=== PATIENT | female | born 1995 | race Two or more races ===

== ENCOUNTER 2022-07-22 10:53 | Outpatient (REF) | payer OTHER, SELFPAY ==
--- NOTE | ~2022-07-22 | MR_ITS ---
EXAMINATION: MR BRAIN WITHOUT AND WITH CONTRAST CLINICAL INFORMATION: Seizures. COMPARISON: None. TECHNIQUE: Multiplanar, multisequence imaging of the brain was acquired on a 1.5 Bertha magnet before and after the intravenous administration of 8.5 mL of Gadavist. FINDINGS: No diffusion abnormalities are identified to suggest an acute infarct. The ventricles are normal in size. No mass effect or midline shift is seen. No brain parenchymal signal abnormality is noted. No extra-axial fluid collections are seen. The brainstem and cerebellum are normal. There is no abnormal parenchymal or leptomeningeal enhancement. No focal cortical dysplasia or migrational abnormality is seen. The hippocampi are normal in appearance. The gradient refocused acquisition demonstrates no pathologic magnetic susceptibility artifact to indicate underlying acute or chronic blood products. There is a small incidental 6 mm retrosplenial cyst in the midline. The craniovertebral junction, marrow signal, and remaining midline structures are normal. The orbits and pituitary axis appear normal. The major intracranial flow voids at the level of the [place] are preserved. The dural venous sinus flow voids are maintained. The mastoid air cells are well aerated. Moderate ethmoid sinus mucosal disease noted, more so anteriorly with mild mucosal thickening in the frontal sinus cavities. There is mild left maxillary sinus mucosal thickening as well. There are multiple submucosal retention cysts in the nasopharyngeal roof. Of note, the lateral retropharyngeal lymph nodes are mildly enlarged bilaterally, measuring up to 1.2 cm in size. MR/MR head/brain wo/w con IMPRESSION: No acute intracranial process. Relatively normal MRI of the brain. No epileptogenic focus visible. No hippocampal pathology. Moderate ethmoid sinus mucosal disease. Mildly enlarged lateral retropharyngeal lymph nodes are nonspecific and may be reactive or inflammatory in etiology.
== END 2022-07-22 10:54 | disposition home or self-care (01) ==
LOC: HO.MRI 10:53
PROVIDERS: Visit Provider Psychiatry & Neurology Neurology
DX: R56.9 Unspecified convulsions (principal)
CPT/HCPCS: 70553; A9585

== ENCOUNTER 2022-07-29 13:36 | Outpatient (REF) | payer OTHER, SELFPAY ==
[2022-07-29 13:48] LABS: MANUAL DIFF FLAG NO
[2022-07-29 14:19] LABS: Basophils Percent Auto 0.2 % (0-2); Eosinophils Absolute Auto 0.2 X10*3/uL (0.0-0.4); Eosinophils Percent Auto 3.1 % (0-4); Hematocrit 40.4 % (37.0-47.0); Hemoglobin 13.2 g/dl (12.0-16.0); Imm Gran Abs Auto 0.02 X10*3/uL (0.00-0.03); Imm Gran Pct Auto 0.4 % (0.0-0.4); Lymphocytes Absolute Auto 2.3 X10*3/uL (1.2-4.9); Lymphocytes Percent Auto 46.6 % (20-40); Mean Corpuscular HGB Conc 32.7 g/dl (31.0-35.0); Mean Corpuscular Hemoglobin 28.6 pg (27.0-33.0); Mean Corpuscular Volume 87.6 fL (80.0-98.0); Mean Platelet Volume 10.2 fL (9.4-12.3); Monocytes Absolute Auto 0.4 X10*3/uL (0.1-1.2); Monocytes Percent Auto 7.6 % (2-11); Neutrophils Absolute Auto 2.1 x10*3/uL (2.0-8.3); Neutrophils Percent Auto 42.1 % (45-73); Platelet Count 254 X10*3/uL (160-400); Red Blood Count 4.61 X10*6/uL (4.20-5.50); Red Cell Distribution Width 12.6 % (11.0-16.0); White Blood Count 4.9 X10*3/uL (4.8-10.8)
[2022-07-29 16:01] LABS: Erythrocyte Sedimentation Rate 19 MM/HR (0-20)
[2022-08-02 21:35] LABS: Lyme Abs Screen <0.90 index
== END 2022-07-29 13:37 | disposition home or self-care (01) ==
LOC: HO.LAB 13:36
PROVIDERS: Visit Provider Psychiatry & Neurology Neurology
DX: R56.9 Unspecified convulsions (principal)
CPT/HCPCS: 36415; 85025; 85652; 86617; 86618